=== PATIENT | male | born 2005 | race Caucasian/White ===

== ENCOUNTER 2025-02-15 23:33 | Emergency (ER) | payer BC ==
[2025-02-15 23:46] VITALS: TEMP 99.2; O2SAT 100
[2025-02-16] MEDS: BABY ASPIRIN 81 MG CHEW PO ONE (00:08)
[2025-02-16 00:13] LABS: Absolute Neutrophil Ct (ANC) 4.06 x10^3/uL (1.78-5.38); BASOPHIL % 0.6 % (0.2-1.2); Basophil (Absolute #) 0.04 x10^3/uL (0.01-0.08); Eosinophil % 2.5 % (0.8-7.0); Eosinophil (Absolute #) 0.17 x10^3/uL (0.04-0.54); Hematocrit 44.6 % (40.1-51.0); Hemoglobin 15.2 g/dL (13.7-17.5); IMMATURE GRAN # 0.01 x10^3u/L (0.001-0.031); IMMATURE GRAN % 0.1 % (0.001-0.429); Lymphocyte (Absolute #) 1.96 x10^3/uL (1.32-3.57); Lymphocytes % 29.2 % (21.8-53.1); Mean Cell Volume 81.8 fL (79.0-92.2); Mean Corpuscular Hemoglobin 27.9 pg (25.7-32.2); Mean Corpuscular Hgb Concent. 34.1 g/dL (32.3-36.5); Mean Platelet Volume 9.4 fL (9.4-12.4); Monocyte (Absolute #) 0.48 x10^3/uL (0.30-0.82); Monocytes % 7.1 % (5.3-12.2); Neutrophil % 60.5 % (34.0-67.9); Platelet Count 251 x10^3/uL (163-337); Red Blood Count 5.45 x10^6/uL (4.63-6.08); Red Cell Distribution Width 12.2 % (11.6-14.4); White Blood Count 6.7 x10^3/uL (4.23-9.07)
[2025-02-16 00:30] LABS: ALBUMIN 5.1 g/dL (3.5-5.0); BILIRUBIN,TOTAL 1.6 mg/dL (0.2-1.3); Calcium 9.7 mg/dL (8.4-10.2); Creatinine 1 0.87 mg/dL (0.66-1.25); EST GLOMERULAR FILTRATION RATE 127.5 ML/MIN; Potassium 3.8 mmol/L (3.5-5.1); Total Protein 7.6 g/dL (6.3-8.2)
--- NOTE | 2025-02-16 00:32 | ERPHSYRPT ---
- History of Present Illness Time Seen by Provider: 02/15/25 23:41 Historian: patient Exam Limitations: no limitations Patient Subjective Stated Complaint: "I had some issues with my heart before, I had some PVCs and palpitations and my master barber put me on Metoprolol but I've been off it for about a month now, I've been feeling better. Tonight I tried to smoke some weed and now I have had nausea and those palpitations back". 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 Pt has history of palpitations and was recently taken off Metoprolol a month ago. Pt is alert and oriented x 3. Respirations are easy. Denies pain. Just feels like he's having palpitations. Heart rates is in the 100-110s upon triage. Pt denies vomiting or abdominal pain. Physician History: 19 years old with history of supraventricular tachycardia/PACs for which she has been thoroughly evaluated by cardiology and was recommended to be on metoprolol. Patient stopped taking metoprolol for almost a month. Patient had issues with palpitations before with smoking marijuana. Patient has not been smoking for almost a year until almost an hour prior to arrival he smoked marijuana followed by palpitations and reports his heart rate was in 160s. Reports some chest tightness and pressure and waited for half an hour which did not go away. Patient reports his symptoms are remarkably improved on presentation in the ER and heart rate is in 90s and low 100s. Denies any wheezing or pressure currently. Reports feeling nausea but no vomiting. Patient reports he feels symptoms coming in waves. Nitro Today/Relief: no nitro taken today Aspirin Treatment Today: no aspirin today Allergies/Adverse Reactions: No Known Drug Allergies Allergy (Verified 02/15/25 23:46) Home Medications: No Reportable Medications [No Reported Medications] 02/15/25 [History] Travel Risk - International Travel Have you traveled outside of the country in past 3 weeks: No - Emerging Infectious Disease Are you exhibiting symptoms associated with any current EIDs: No - Review of Systems Constitutional: No Symptoms Eyes: No Symptoms Ears, Nose, & Throat: No Symptoms Respiratory: No Symptoms Cardiac: Palpitations Abdominal/Gastrointestinal: No Symptoms Genitourinary Symptoms: No Symptoms Musculoskeletal: No Symptoms Skin: No Symptoms Neurological: No Symptoms Endocrine: No Symptoms Hematologic/Lymphatic: No Symptoms Immunological/Allergic: No Symptoms - Past Medical History Pertinent Past Medical History: Yes Neurological History: No Pertinent History ENT History: No Pertinent History Cardiac History: Other Respiratory History: No Pertinent History Endocrine Medical History: No Pertinent History Musculoskeletal History: No Pertinent History GI Medical History: No Pertinent History History: No Pertinent History Psycho-Social History: No Pertinent History Male Reproductive Disorders: No Pertinent History Other Medical History: palpitations, pvcs - Past Surgical History Past Surgical History: No Neuro Surgical History: No Pertinent History Cardiac: No Pertinent History Respiratory: No Pertinent History Gastrointestinal: No Pertinent History Genitourinary: No Pertinent History Musculoskeletal: No Pertinent History Male Surgical History: No Pertinent History - Social History Smoking Status: Never smoker Exposure to second hand smoke: No Drug Use: marijuana - Social Determinants of Health Will the patient participate in the screening: Yes Do you worry about a steady place to live?: No Do you have any problems with any of the following?: No known problems In the past 12 months,have you had to go without utilities?: No Transportation Issues: No Has anyone in your support network made you feel unsafe?: No Have you or anyone in your house had to go w/o enough food: No - Nursing Vital Signs Nursing Vital Signs: Initial Vital Signs Temperature 99.2 F 02/15/25 23:43 Pulse Rate 102 H 02/15/25 23:43 Respiratory Rate 18 02/15/25 23:43 Blood Pressure 168/104 02/15/25 23:43 O2 Sat by Pulse Oximetry 100 02/15/25 23:43 Pain Scale Pain Intensity 0 - Physical Exam General Appearance: no apparent distress, anxiety Eye Exam: PERRL/EOMI Ears, Nose, Throat Exam: normal ENT inspection Neck Exam: normal inspection, non-tender, supple, full range of motion Respiratory Exam: normal breath sounds, lungs clear Cardiovascular Exam: normal heart sounds, tachycardia Gastrointestinal/Abdomen Exam: soft, normal bowel sounds, No tenderness Back Exam: normal inspection, normal range of motion Extremity Exam: normal inspection, normal range of motion Neurologic Exam: alert, oriented x 3, cooperative Skin Exam: normal color SpO2 Interpretation: normal SpO2: 100 O2 Delivery: Room Air Ordered Tests: Active Orders 24 hr Category Date Time Status Bisque Finisher STAT Care 02/15/25 23:52 Active EKG-ER Only STAT Care 05/15/25 23:51 Active CHEST 1 VIEW (PORTABLE) Stat Exams 02/15/25 00:05 Taken CBC W DIFF Stat Lab 02/15/25 00:10 Completed CMP Stat Lab 02/15/25 00:10 Completed TROPONIN Q4H Lab 02/15/25 00:10 Completed TROPONIN Q4H Lab 02/16/25 03:52 Ordered TROPONIN Q4H Lab 02/16/25 07:52 Ordered TSH [TSH, 3RD Generation] Stat Lab 02/15/25 00:10 Received Medication Summary Discontinued Medications Generic Name Dose Route Start Last Admin Trade Name Dasia PRN Reason Stop Dose Admin Aspirin 324 mg 02/15/25 23:51 02/16/25 00:08 Aspirin 81 Mg Tab.Chew PO 02/15/25 23:52 Not Given STAT ONE Lab/Rad Data: Laboratory Result Diagrams 02/15/25 00:10 02/15/25 00:10 Laboratory Results 02/15/25 02/15/25 02/15/25 Range/Units 00:10 00:10 00:10 WBC 6.7 (4.23-9.07) x10^3/uL RBC 5.45 (4.63-6.08) x10^6/uL Hgb 15.2 (13.7-17.5) g/dL Hct 44.6 (40.1-51.0) % MCV 81.8 (79.0-92.2) fL MCH 27.9 (25.7-32.2) pg MCHC 34.1 (32.3-36.5) g/dL RDW 12.2 (11.6-14.4) % Plt Count 251 (163-337) x10^3/uL MPV 9.4 (9.4-12.4) fL Gran % 60.5 (34.0-67.9) % Immature Gran % (Auto) 0.1 (0.001-0.429) % Nucleat RBC Rel Count 0.0 (0.00-0.2) % Eos # (Auto) 0.17 (0.04-0.54) x10^3/uL Immature Gran # (Auto) 0.01 (0.001-0.031) x10^3u/L Absolute Lymphs (auto) 1.96 (1.32-3.57) x10^3/uL Absolute Monos (auto) 0.48 (0.30-0.82) x10^3/uL Absolute Nucleated RBC 0.00 (0.00-0.012) x10^3u/L Lymphocytes % 29.2 (21.8-53.1) % Monocytes % 7.1 (5.3-12.2) % Eosinophils % 2.5 (0.8-7.0) % Basophils % 0.6 (0.2-1.2) % Absolute Granulocytes 4.06 (1.78-5.38) x10^3/uL Basophils # 0.04 (0.01-0.08) x10^3/uL Sodium 141 (135-145) mmol/L Potassium 3.8 (3.5-5.1) mmol/L Chloride 103 (98-107) mmol/L Carbon Dioxide 25 (22-30) mmol/L Anion Gap 17.0 H (5-15) MEQ/L BUN 14 (9-20) mg/dL Creatinine 0.87 (0.66-1.25) mg/dL Estimated GFR 127.5 ML/MIN Glucose 115 H (74-106) mg/dL Calcium 9.7 (8.4-10.2) mg/dL Total Bilirubin 1.60 H (0.2-1.3) mg/dL AST 33 (17-59) U/L ALT 26 (0-50) U/L Alkaline Phosphatase 68 (38-126) U/L Troponin I < 0.012 (0.000-0.033) ng/mL Serum Total Protein 7.6 (6.3-8.2) g/dL Albumin 5.1 H (3.5-5.0) g/dL - Progress Progress: improved, re-examined Air Movement: good Progress Note: 02/16/25 00:44 Differential diagnosis: ACS, dysrhythmia, electrolyte abnormality, marijuana side effect/sympathomimetic effect, pneumothorax, pneumonia, PE 19-year-old is evaluated in the ER for palpitations after smoking marijuana. Patient has history of palpitations and was supposed to take metoprolol which she has not been taking for almost a month. Patient symptoms started right after smoking marijuana but its improved a lot and heart rate in low 190s on presentation in the ER. EKG showed sinus tachycardia with no acute ST elevations. Has normal white count, chemistries fairly unremarkable and negative troponin. Chest x-ray is negative for any acute cardiopulmonary findings interpreted by me, official final read is pending. I believe patient's symptoms are secondary to sympathomimetic/stimulant effect of marijuana use and also with patient not taking his metoprolol could have contributed it. Low heart score, do not think patient needs further workup, not concern for PE with a background of patient's symptoms. Patient is thoroughly counseled and recommended outpatient follow-up. Discussed signs symptoms of worsening needing return to ER which he seems understanding. Stable for discharge. Complexity of problems addressed: Moderate acute Complexity of data reviewed/analyzed: Moderate Risk of complication: Low risk Counseled pt/family regarding: lab results, diagnosis, need for follow-up, rad results, smoking cessation Medical Desision Making - Diagnostic Testing Diagnostic test were ordered, analyzed, and reviewed by me: Yes Radiological Interpretation: Interpreted by me - Risk of complications The pt has a mod risk of morbidity or mortality based on: Need for prescription drug management - Departure Departure Disposition: Home Clinical Impression: Palpitations, Marijuana use Condition: Stable Critical Care Time: No Referrals: NEERAJ SHORT, [employer]OPER [Primary Care Provider, UNKNOWN] - Follow up with PCP 1 day Instructions: Palpitations (DC) Additional Instructions: Follow-up with your primary care and master barber for reevaluation. Restart taking your metoprolol. Do not smoke cigarettes/marijuana. return to ER for if having chest pain palpitation/shortness of breath etc.
[2025-02-16 00:36] VITALS: BP 135/94; PULSE 92; RESP 19
--- NOTE | 2025-02-16 08:50 | XRAY ---
Indication: Palpitations. Comparison: None Portable chest demonstrates normal heart, lungs, and bony thorax.
== END 2025-02-16 00:53 | disposition home or self-care (01) ==
LOC: ED 23:33
DX: R00.2 Palpitations (principal); F12.90 Cannabis use, unspecified, uncomplicated
CPT/HCPCS: 36415; 71045; 80053; 84443; 84484; 85025; 93005; 93041; 99284; 99285